=== PATIENT | female | born 1990 | race Caucasian/White ===

== ENCOUNTER → 2017-05-02 | Outpatient (CLI) | payer BC | LOC: LABWHC1 09:08 | PROVIDERS: ATTEND Obstetrics & Gynecology | DX: Z34.90 Encounter for supervision of normal pregnancy, unspecified, unspecified trimester (principal); Z3A.00 Weeks of gestation of pregnancy not specified | CPT/HCPCS: 36415; 84702 ==

== ENCOUNTER → 2021-02-21 | Outpatient (CLI) | payer BC ==
[2021-02-21 14:33] LABS: African American GFR (CKD) 100.1 (60.0-200.0); Albumin 4.6 g/dL (3.80-4.90); Albumin/Globulin Ratio 1.77 (1.60-3.17); Anion Gap 6.8 mmol/L (4.00-12.00); BUN/Creat Ratio 11.11 Ratio (12.00-20.00); Calcium 9.3 mg/dL (8.7-10.3); Carbon Dioxide 25.2 mmol/L (21.6-31.8); Chol/HDL Ratio 6.51; Globulin 2.6 g/dL (1.6-3.3); LDL Cholesterol,Calculated 123.6 mg/dL (0.0-131.0); Non-African American GFR(CKD) 86.4 (60.0-200.0); Potassium 4.2 mmol/L (3.5-5.5); Total Bilirubin 0.5 mg/dL (0.3-1.2); Total Protein 7.2 g/dL (6.2-8.2); VLDL Calculation 69.4 mg/dL (5.00-40.00)
[2021-02-21 14:35] LABS: DHEA Sulfate 208.9 ug/dL (26.0-430.0)
[2021-02-21 14:37] LABS: Insulin Level 10.8 mIU/mL (3.0-25.0)
[2021-02-21 14:42] LABS: Estradiol 45.2 pg/mL; Follicle Stimulating Hormone 6.1 mIU/mL
[2021-02-21 17:28] LABS: HIV 2 AB Non-Reactive (Non-Reactive); HIV AB P24 Non-Reactive (Non-Reactive); HIV P24 AG Non-Reactive (Non-Reactive)
== END | disposition home or self-care (01) ==
LOC: LABWHC1 07:04
PROVIDERS: ATTEND Obstetrics & Gynecology
DX: Z13.220 Encounter for screening for lipoid disorders (principal); Z13.29 Encounter for screening for other suspected endocrine disorder; N91.2 Amenorrhea, unspecified; Z11.3 Encounter for screening for infections with a predominantly sexual mode of transmission
CPT/HCPCS: 36415; 80053; 80061; 82627; 82670; 83001; 83002; 83036; 83525; 84402; 84439; 84443; 86780; 87390

== ENCOUNTER → 2022-09-06 | Outpatient (CLI) | payer BC | END | disposition home or self-care (01) | LOC: LABWHC1 07:59 | PROVIDERS: ATTEND Obstetrics & Gynecology | DX: N91.2 Amenorrhea, unspecified (principal) | CPT/HCPCS: 36415; 84146 ==

== ENCOUNTER → 2022-10-06 | Outpatient (CLI) | payer BC ==
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
== END | disposition home or self-care (01) ==
LOC: RADUSWWP 06:40
PROVIDERS: ATTEND Obstetrics & Gynecology
DX: N85.8 Other specified noninflammatory disorders of uterus (principal); N91.1 Secondary amenorrhea
CPT/HCPCS: 76856

== ENCOUNTER → 2022-10-20 | Outpatient (CLI) | payer BC ==
--- NOTE | 2022-10-21 12:15 | US ---
EXAMINATION TYPE: US thyroid st tissue head/neck DATE OF EXAM: 10/20/2022 COMPARISON: NONE CLINICAL HISTORY: 31-year-old female E07.9 DISORDER OF THYROID. Disorder of thyroid. TECHNIQUE: Multiple sonographic images of the thyroid gland are obtained. FINDINGS: GLAND SIZE: Right Lobe: 5.0 x 1.9 x 1.6 cm Overall Parenchyma: homogenous Left Lobe: 4.9 x 1.6 x 1.4 cm Overall Parenchyma: homogeneous Isthmus Thickness: 0.19 cm NODULES RIGHT: # of nodules measured on right: 2 1. 0.4 X 0.4 x 0.3 cm, upper medial, solid or almost completely solid, hypoechoic TR 4 nodule, whic h is wider than tall, with smooth margins, without echogenic foci. Prior size: No prior 2. 0.4 X 0.4 x 0.4 cm, upper lateral, solid or almost completely solid, hypoechoic nodule, which is as wide as it tall, with smooth margins, without echogenic foci. Prior size: No prior LEFT: # of nodules measured on left: 0 ISTHMUS: # of nodules measured in the isthmus: 0 Reiki Practitioner notes: Bilateral neck scanned, no evidence of lymphadenopathy. IMPRESSION: 1. Borderline thyromegaly. 2. A couple tiny TR4 nodules in the right lobe measuring up to 4 mm.
== END | disposition home or self-care (01) ==
LOC: RADUSWWP 16:52
PROVIDERS: ATTEND Internal Medicine Endocrinology, Diabetes & Metabolism
DX: E04.2 Nontoxic multinodular goiter (principal); E07.9 Disorder of thyroid, unspecified; E78.2 Mixed hyperlipidemia; E55.9 Vitamin D deficiency, unspecified; D51.8 Other vitamin B12 deficiency anemias; E86.0 Dehydration; N91.1 Secondary amenorrhea; E23.6 Other disorders of pituitary gland; E24.8 Other Cushing's syndrome; R73.01 Impaired fasting glucose
CPT/HCPCS: 76536